=== PATIENT | female | born 1940 | race Caucasian/White ===

== ENCOUNTER → 2017-07-05 | Outpatient (CLI) | payer MEDICARE, OTHER | LOC: OD 11:31 | PROVIDERS: ATTEND Otolaryngology | DX: J30.9 Allergic rhinitis, unspecified (principal) | CPT/HCPCS: 36415; 82785; 86003 ==

== ENCOUNTER 2018-06-07 11:15 | Emergency (ER) | payer MEDICARE, OTHER ==
--- NOTE | 2018-06-07 12:18 | ER Document Report ---
ED Medical Screen (RME) - General Chief Complaint: Cough Stated Complaint: DIFFICULTY BREATHING Time Seen by Provider: 06/07/18 12:13 Primary Care Provider: JOAN QUEZADA DO [ASSOCIATE] - Follow up as needed Notes: 77-year-old female patient emergency department complaint of shortness of breath. Also having some anxiety because she has run out of her Xanax. Last Xanax prescription was filled in 2007. Does not smoke but has a history of COPD. TRAVEL OUTSIDE OF THE [place] IN LAST 30 DAYS: No - HPI Onset: Yesterday Onset/Duration: Gradual, Constant Severity: Moderate - Related Data Allergies/Adverse Reactions: aspirin [Aspirin] Allergy (Severe, Verified 06/07/18 11:23) RESP DISTRESS morphine [Morphine] Allergy (Intermediate, Verified 06/07/18 11:23) INSOMNIA Past Medical History - General Information source: Patient - Social History Cigarette use (# per day): No Frequency of alcohol use: None Drug Abuse: None Lives with: Spouse/Significant other - Past Medical History Cardiac Medical History: Denies: Hx Heart Attack, Hx Hypertension Pulmonary Medical History: Reports: Hx COPD Denies: Hx Asthma Neurological Medical History: Denies: Hx Cerebrovascular Accident, Hx Seizures GI Medical History: Denies: Hx Hepatitis, Hx Hiatal Hernia, Hx Ulcer Infectious Medical History: Denies: Hx Hepatitis Past Surgical History: Reports: Hx Hysterectomy. Denies: Hx Mastectomy, Hx Open Heart Surgery, Hx Pacemaker Review of Systems - Review of Systems Notes: Constitutional: denies: Chills, Diaphoresis, Fever, Malaise, Weakness EENT: denies: Eye discharge, Blurred vision, Tearing, Double vision, Nose congestion, Nose discharge, Throat swelling, Mouth pain Cardiovascular: denies: Palpitations, Heart racing, Orthopnea, Dyspnea, Chest pain Respiratory: Positive for cough, shortness of breath and wheezing Gastrointestinal: denies: Abdominal pain, Diarrhea, Nausea, Vomiting, Black stools, bright red blood in stool Genitourinary: denies: Burning, Dysuria, Discharge, Frequency, Flank pain, Hematuria Musculoskeletal: denies: Joint pain, Joint swelling, Muscle pain, Muscle stiffness, back pain Hematologic/Lymphatic: denies: Anemia, Easy bleeding, Easy bruising, Blood clots Neurological/Psychological: denies: Confusion, Dementia, Depression, Loss of consciousness. Positive for anxiety Skin: No lesions, no masses, no skin breakdown, no abscesses Physical Exam - Vital signs Vitals: Pulse Resp BP Pulse Ox 72 16 129/76 H 92 06/07/18 11:26 06/07/18 11:26 06/07/18 11:06/07/18 11:26 Interpretation: Normal - General General appearance: Appears well, Alert - HEENT Head: Normocephalic, Atraumatic Eyes: Normal Pupils: PERRL - Respiratory Respiratory status: No respiratory distress Chest status: Nontender Breath sounds: Rales - Bilateral lower lobes Chest palpation: Normal - Cardiovascular Rhythm: Regular Heart sounds: Normal auscultation Murmur: No - Abdominal Inspection: Normal Distension: No distension Bowel sounds: Normal Tenderness: Nontender Organomegaly: No organomegaly - Back Back: Normal, Nontender - Extremities General upper extremity: Normal inspection, Nontender, Normal color, Normal ROM, Normal temperature General lower extremity: Normal inspection, Nontender, Normal color, Normal ROM, Normal temperature, Normal weight bearing. No: José's sign - Neurological Neuro grossly intact: Yes Cognition: Normal Orientation: AAOx4 [place] Coma Scale Eye Opening: Spontaneous [place] Coma Scale Verbal: Oriented [place] Coma Scale Motor: Obeys Commands Yudy Coma Scale Total: 15 Speech: Normal Motor strength normal: LUE, RUE, LLE, RLE Sensory: Normal - Psychological Associated symptoms: Normal affect, Normal mood - Skin Skin Temperature: Warm Skin Moisture: Dry Skin Color: Normal Course - Re-evaluation Re-evalutation: 06/07/18 14:02 We will do the order for her chest x-ray and labs. Likely COPD exacerbation. Will refill her prescription for Xanax and have her seen by the main site ED at this time. - Vital Signs Vital signs: Temp Pulse Resp BP Pulse Ox 98.8 F 72 16 129/76 H 92 06/07/18 11:33 06/07/18 11:26 06/07/18 11:26 06/07/18 11:26 06/07/18 11:26 - Laboratory Result Diagrams: 06/07/18 12:45 06/07/18 12:45 Laboratory results interpreted by me: 06/07/18 12:45 RDW 14.4 H Lymphocytes % 11.2 L Monocytes % 15.0 H Doctor's Discharge - Discharge Prescriptions: Alprazolam 0.25 mg PO TID PRN 10 Days #30 tablet PRN Reason: Anxiety/Agitation Referrals: JOAN QUEZADA DO [ASSOCIATE] - Follow up as needed
[2018-06-07] MEDS ORDERED: ALBUTEROL SULFATE 0.083% NEB 2.5 MG/3 ML AMPUL NEB ONE ×2 (12:19→15:30)
[2018-06-07 12:57] LABS: ABSOLUTE LYMPHOCYTES (AUTO) 0.9 10^3/uL (0.5-4.7); ABSOLUTE MONOCYTES (AUTO) 1.2 10^3/uL (0.1-1.4); ABSOLUTE NEUT (AUTO) 6.1 10^3/uL (1.7-8.2); BASOPHILS % (AUTO) 0.6 % (0-2); EOSINOPHILS % (AUTO) 0.2 % (0-6); HEMATOCRIT 41.7 % (36.0-47.0); HEMOGLOBIN 14.3 g/dL (12.0-15.5); LYMPHOCYTES % (AUTO) 11.2 % (13-45); MEAN CORPUSCULAR HGB CONC 34.3 g/dL (32.0-36.0); MEAN CORPUSCULAR VOLUME 93 fl (80-97); PLATELET COUNT 242 10^3/uL (150-450); RED BLOOD COUNT 4.47 10^6/uL (3.72-5.28); RED CELL DISTRIBUTION WIDTH 14.4 % (11.5-14.0); TOTAL CELLS COUNTED % (AUTO) 100 %; WHITE BLOOD COUNT 8.3 10^3/uL (4.0-10.5)
[2018-06-07 13:07] LABS: BLOOD UREA NITROGEN 16 mg/dL (7-20); CALCIUM 9.6 mg/dL (8.4-10.2); CARBON DIOXIDE 25 mmol/L (22-30); CHLORIDE 107 mmol/L (98-107); GLUCOSE 98 mg/dL (75-110); POTASSIUM 4.1 mmol/L (3.6-5.0); SODIUM 142.5 mmol/L (137-145)
[2018-06-07 13:08] LABS: ALANINE AMINOTRANSFERASE 22 U/L (9-52); ALBUMIN 4.6 g/dL (3.5-5.0); ALKALINE PHOSPHATASE 83 U/L (38-126); ANION GAP 11 (5-19); ASPARTATE AMINO TRANSFERASE 19 U/L (14-36); BILIRUBIN,DIRECT 0.1 mg/dL (0.0-0.4); BILIRUBIN,TOTAL 0.5 mg/dL (0.2-1.3); TOTAL PROTEIN 6.9 g/dL (6.3-8.2)
[2018-06-07] MEDS ORDERED: PREDNISONE 20 MG TABLET PO ONE (13:31)
[2018-06-07] MEDS ORDERED: IPRATROPIUM/ALBUTEROL 0.5-2.5 MG/3 ML AMPUL NEB ONE ×2 (13:32→15:10)
--- NOTE | 2018-06-07 13:40 | ER Document Report ---
ED General - General Chief Complaint: Cough Stated Complaint: DIFFICULTY BREATHING Time Seen by Provider: 06/07/18 12:13 Primary Care Provider: JOAN QUEZADA DO [ASSOCIATE] - Follow up as needed Information source: Patient TRAVEL OUTSIDE OF THE [place] IN LAST 30 DAYS: No - HPI Patient complains to provider of: COUGH, SOB, CHESTWALL AND RIB PAIN WITH COUGH Onset: Last week Onset/Duration: Gradual Quality of pain: Sharp Severity: Moderate Associated symptoms: Productive cough, Fever - Subjective, Shortness of breath. denies: Chills, Nausea, Vomiting Exacerbated by: Coughing Relieved by: Denies Similar symptoms previously: Yes - Per patient, feels similar to COPD exacerbations in the past Recently seen / treated by doctor: No - Related Data Allergies/Adverse Reactions: aspirin [Aspirin] Allergy (Severe, Verified 06/07/18 11:23) RESP DISTRESS morphine [Morphine] Allergy (Intermediate, Verified 06/07/18 11:23) INSOMNIA Past Medical History - General Information source: Patient - Social History Smoking Status: Former Smoker Frequency of alcohol use: None Drug Abuse: None Lives with: Spouse/Significant other Family History: Reviewed & Not Pertinent Patient has suicidal ideation: No Patient has homicidal ideation: No - Past Medical History Cardiac Medical History: Reports: Hx Hypercholesterolemia Denies: Hx Heart Attack, Hx Hypertension Pulmonary Medical History: Reports: Hx Bronchitis, Hx COPD Denies: Hx Asthma Neurological Medical History: Denies: Hx Cerebrovascular Accident, Hx Seizures Renal/ Medical History: Denies: Hx Peritoneal Dialysis GI Medical History: Denies: Hx Hepatitis, Hx Hiatal Hernia, Hx Ulcer Infectious Medical History: Denies: Hx Hepatitis Past Surgical History: Reports: Hx Cardiac Surgery, Hx Cholecystectomy, Hx Hysterectomy. Denies: Hx Mastectomy, Hx Open Heart Surgery, Hx Pacemaker Review of Systems - Review of Systems Constitutional: Fever. denies: Chills, Weakness EENT: No symptoms reported Cardiovascular: denies: Chest pain, Palpitations, Syncope, Dizziness, [place] ed Respiratory: Cough, Hurts to breathe, Sputum, Wheezing Gastrointestinal: denies: Abdominal pain, Diarrhea, Nausea, Vomiting, Constipation Genitourinary: No symptoms reported Female Genitourinary: No symptoms reported Musculoskeletal: No symptoms reported Skin: No symptoms reported Hematologic/Lymphatic: No symptoms reported Neurological/Psychological: No symptoms reported Physical Exam - Vital signs Vitals: Pulse Resp BP Pulse Ox 72 16 129/76 H 92 06/07/18 11:26 06/07/18 11:26 06/07/18 11:26 06/07/18 11:26 - General General appearance: Appears well In distress: None - HEENT Head: Normocephalic, Atraumatic Conjunctiva: Normal Extraocular movements intact: Yes Eyelashes: Normal Pupils: PERRL Pharynx: Normal Neck: Normal - Respiratory Respiratory status: No respiratory distress Breath sounds: Decreased air movement, Productive cough, Wheezing Chest palpation: Normal Notes: Diminished breath sounds bilaterally. Wheezing left greater than right. No respiratory distress. - Cardiovascular Rhythm: Regular Heart sounds: Normal auscultation Murmur: No - Abdominal Inspection: Normal Distension: No distension Tenderness: Nontender Organomegaly: No organomegaly - Back Back: Normal - Extremities Notes: Moves all extremities well. Atraumatic. - Neurological Notes: No focal neurologic deficits - Skin Skin Temperature: Warm Skin Moisture: Dry Skin Color: Normal Skin irregularity: negative: Rash Course - Re-evaluation Re-evalutation: 06/07/18 17:20 Patient is now status post oral prednisone, albuterol neb followed by 2 Tyshawn Granados's. She states that her breathing is quite a bit improved. Her laboratory studies look good. Chest x-ray does not show any infiltrates. Auscultation after breathing treatments is improved. Oxygen saturation 95-96% on room air. Patient given an ambulation trial and she is maintaining at least 95% on room air. Given this, I will go ahead and treat her as an acute exacerbation of COPD. Start her on Zithromax, oral prednisone, and pro-air 2 puffs every 4 hours as needed. We will have her continue her Advair Diskus as directed. 06/07/18 17:23 Per history and exam. I do not believe this to be a cardiac etiology. Therefore no further workup is ordered - Vital Signs Vital signs: Temp Pulse Resp BP Pulse Ox 98.8 F 72 15 147/68 H 95 06/07/18 11:33 06/07/18 11:26 06/07/18 15:02 06/07/18 15:02 06/07/18 15:02 - Laboratory Result Diagrams: 06/07/18 12:45 06/07/18 12:45 Laboratory results interpreted by me: 06/07/18 12:45 RDW 14.4 H Lymphocytes % 11.2 L Monocytes % 15.0 H - Diagnostic Test Radiology reviewed: Reports reviewed - EKG Interpretation by Me EKG shows normal: Sinus rhythm Rate: Normal Rhythm: PVC's Discharge - Discharge Clinical Impression: COPD with exacerbation Condition: Good Disposition: HOME, SELF-CARE Instructions: Chronic Obstructive Lung Disease ([facility]) Prescriptions: Albuterol Sulfate [Proair HFA Inhalation Aerosol 8.5 gm MDI] 2 puff IH Q4H PRN #1 mdi PRN Reason: Alprazolam 0.25 mg PO TID PRN 10 Days #30 tablet PRN Reason: Anxiety/Agitation Azithromycin [Zithromax 250 mg Tablet] 250 mg PO ASDIR PRN #6 tablet PRN Reason: Prednisone [Deltasone 20 mg Tablet] 3 tab PO DAILY 5 Days #15 tablet Referrals: JOAN QUEZADA DO [ASSOCIATE] - Follow up as needed
--- NOTE | 2018-06-07 14:00 | RADIOLOGY REPORT (SQ) ---
EXAM DESCRIPTION: CHEST 2 VIEWS COMPLETED DATE/TIME: 06/07/2018 1:04 pm REASON FOR STUDY: sob COMPARISON: None. EXAM PARAMETERS: NUMBER OF VIEWS: two views TECHNIQUE: Digital Frontal and Lateral radiographic views of the chest acquired. RADIATION DOSE: NA LIMITATIONS: none FINDINGS: LUNGS AND PLEURA: No opacities, masses or pneumothorax. No pleural effusion. MEDIASTINUM AND HILAR STRUCTURES: No masses or contour abnormalities. HEART AND VASCULAR STRUCTURES: Normal heart size. Ectatic thoracic aorta. BONES: Mild wedge deformity at the thoracolumbar junction, possibly physiologic. HARDWARE: Prior cholecystectomy. OTHER: No other significant finding. IMPRESSION: No evidence of acute cardiopulmonary process. TECHNICAL DOCUMENTATION: JOB ID: [id number] [employer]- All Rights Reserved Reading location - IP/workstation name: [email or web address]
[2018-06-07 17:43] VITALS: BP 119/73
--- NOTE | 2018-06-07 21:49 | EKG REPORT ---
SEVERITY:- ABNORMAL ECG - SINUS RHYTHM MULTIFORM VENTRICULAR PREMATURE COMPLEXES : Confirmed by: Taylor Wallace 07-Jun-2018 21:48:56
== END 2018-06-07 17:46 | disposition home or self-care (01) ==
LOC: ER 11:15
DX: J44.1 Chronic obstructive pulmonary disease with (acute) exacerbation (principal); R05 Cough; R50.9 Fever, unspecified; R06.02 Shortness of breath; R07.89 Other chest pain; R07.81 Pleurodynia; I49.3 Ventricular premature depolarization; Z88.6 Allergy status to analgesic agent; Z88.5 Allergy status to narcotic agent; Z87.891 Personal history of nicotine dependence
CPT/HCPCS: 93005; 94640; 99285; 36415; 85025; 80053; 84484; 71046; 93010; A9270 ×3; J7512; J7620